=== PATIENT | male | born 1960 | race Caucasian/White ===

== ENCOUNTER 2019-11-26 12:25 | Emergency (ER) | payer MEDICARE, MEDICAID ==
[2019-11-26 13:49] VITALS: BP 122/96
[2019-11-26] MEDS ORDERED: cefTRIAXone VIAL(*) 1,000 MG VIAL IM ONE (14:04)
[2019-11-26] MEDS ORDERED: Lidocaine 1% MPF* 2 ML VIAL INJ ONE (14:05)
[2019-11-26] MEDS ORDERED: Tetan/Diph/Pertus SYR(Tdap)* 0.5 ML SYR(BOOSTRIX) use SYR contains LATEX IM ONE (14:15)
--- NOTE | 2019-11-26 14:24 | UC ---
Skin Complaint HPI - HPI Summary HPI Summary: Pt presents with c/o left hand pain, swelling, erythema, purulent discharge that began 3 days ago after having his pet cat scratch him. Pt reports that cat is up to date with all vaccines. Pt is unsure of last time he had tetanus vaccine. - History of Current Complaint Chief Complaint: UCGeneralIllness Time Seen by Provider: 11/26/19 13:39 Stated Complaint: LACERATION Hx Obtained From: Patient Onset/Duration: Gradual Onset, Still Present Skin Exposure Onset/Duration: Hours Ago, Days Ago Onset Severity: Mild Current Severity: Moderate Pain Intensity: 5 Location: Discrete - left hand and forearm Character: Swelling, Pain, Redness, Painful Aggravating Factor(s): Touch Alleviating Factor(s): Nothing Associated Signs & Symptoms: Positive: Drainage - purulent, Tenderness Related History: Possible Reaction to: Animal - pet cat scratched pt - Allergy/Home Medications Allergies/Adverse Reactions: Allergies Allergy/AdvReac Type Severity Reaction Status Date / Time No Known Allergies Allergy Verified 11/26/19 13:49 Home Medications: Home Medications Amoxicillin/Clavulanate TAB* [Augmentin TAB 875*] 875 mg PO Q12H #20 tab [Rx] PMH/Surg Hx/FS Hx/Imm Hx Previously Healthy: Yes - pt has CP and has mobility restrictions - Surgical History Surgical History: None Surgery Procedure, Year, and Place: leg surgery - Family History Known Family History: Positive: Hypertension - Social History Occupation: Disabled Lives: With Family Alcohol Use: None Substance Use Type: None Smoking Status (MU): Former Smoker Have You Smoked in the Last Year: No When Did the Patient Quit Smoking/Using Tobacco: 30 yr - Immunization History Most Recent Tetanus Shot: unknown Vaccination Up to Date: No Review of Systems All Other Systems Reviewed And Are Negative: Yes Constitutional: Positive: Negative Skin: Positive: Other - erythema, swelling left hand with purulent drainage Eyes: Positive: Negative ENT: Positive: Negative Respiratory: Positive: Negative Cardiovascular: Positive: Negative Gastrointestinal: Positive: Negative Genitourinary: Positive: Other Motor: Positive: Decreased ROM - pt at baseline, Weakness - pt at baseline, Other - pt uses wheelchair for mobility Neurovascular: Positive: Other - pt has CP and has mobility restrictions Musculoskeletal: Positive: Edema - left hand moderate swelling extended to fingers, and proximally to mid forearm., Other: - pt has mobility restrictions due to HX o fCP Neurological/Mental Status: Positive: Weakness - pt has hx of CP Psychological: Positive: Negative Is Patient Immunocompromised?: Yes - has mobility limitations, due to CP Physical Exam Vital Signs: Initial Vital Signs Temp 99.0 F 11/26/19 13:41 Pulse 126 11/26/19 13:41 Resp 18 11/26/19 13:41 BP 122/96 11/26/19 13:41 Pulse Ox 95 11/26/19 13:41 Course/Dx - Course Course Of Treatment: Pt's left hand was marked with surgi-marker, pt was instructed to monitor for any worsening symptoms and to go to the closest ER if symptoms do not improve or worsen over the next 24 hours. Wound culture was taken, boosterix given, labs for Cat scratch fever test, and 1GM Rocephin given. - Differential Diagnoses - Skin Complaint Differential Diagnoses: Abscess, Cellulitis, Other - sepsis - Diagnoses Provider Diagnosis: Infected wound, Cat scratch of hand, Cellulitis of hand, left Discharge ED - Sign-Out/Discharge Documenting (check all that apply): Patient Departure All imaging exams completed and their final reports reviewed: No Studies - Discharge Plan Condition: Stable Disposition: HOME Prescriptions: Amoxicillin/Clavulanate TAB* [Augmentin TAB 875*] 875 mg PO Q12H #20 tab Patient Education Materials: Wound Infection (ED), Cellulitis (ED) Referrals: Amber Kern MD [Primary Care Provider] - Additional Instructions: Please follow up with your PCP as needed. If your symptoms do not improve or worsen in the next 24 hours, please go directly to the closest emergency room. - Billing Disposition and Condition Condition: STABLE Disposition: Home
[2019-11-28 20:31] LABS: Bartonella Henselae IgG <1:128 titer (<1:128); Bartonella Henselae IgM <1:20 titer (<1:20); Bartonella Quintana IgG <1:128 titer (<1:128); Bartonella Quintana IgM <1:20 titer (<1:20)
--- NOTE | 2019-11-29 08:21 | UC ---
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 Patient being treated with Augmentin which is an appropriate antibiotic. Please call and make sure patient is improving. Course/Dx - Diagnoses Provider Diagnoses: Infected wound, Cat scratch of hand, Cellulitis of hand, left Discharge ED - Sign-Out/Discharge Documenting (check all that apply): Post-Discharge Follow Up All imaging exams completed and their final reports reviewed: No Studies - Discharge Plan Condition: Stable Disposition: HOME Prescriptions: Amoxicillin/Clavulanate TAB* [Augmentin TAB 875*] 875 mg PO Q12H #20 tab Patient Education Materials: Wound Infection (ED), Cellulitis (ED) Referrals: Amber Kern MD [Primary Care Provider] - Additional Instructions: Please follow up with your PCP as needed. If your symptoms do not improve or worsen in the next 24 hours, please go directly to the closest emergency room. - Billing Disposition and Condition Condition: STABLE Disposition: Home
== END 2019-11-26 14:45 | disposition home or self-care (01) ==
LOC: UCCORT 12:25
DX: S60.512A Abrasion of left hand, initial encounter (principal); L03.114 Cellulitis of left upper limb; W55.03XA Scratched by cat, initial encounter; Y92.9 Unspecified place or not applicable; Z23 Encounter for immunization; Z87.891 Personal history of nicotine dependence
CPT/HCPCS: 86611; 87070; 87077; 87186; 87205; 90471; 90715; 96372; 99212; G0463; J0696